=== PATIENT | female | born 1970 | race Caucasian/White ===

== ENCOUNTER 2019-04-06 11:05 | Emergency (ER) | payer OTHER ==
--- OUTSIDE RECORDS SUMMARY | 2019-04-06 11:19 | XMS REPORT | Continuity of Care Document ---
:1970 External Reference #:[id number] Author Name ASHLEY Jeter Address [address] [place] [address] Care Team Providers Name Role Phone Dimitris No M.D. - Family Care Team Information [place] Program Coordinator Medicine Problems Active Problems Provider Date Uncomplicated moderate persistent asthma Alissa Ferrari M.D. Onset: 2016 Uncomplicated moderate persistent asthma Alissa Ferrari M.D. Onset: 2015 Allergic rhinitis due to animals Alissa Ferrari M.D. Onset: 08/19/2015 Allergic rhinitis Alissa Ferrari M.D. Onset: 08/19/2015 Allergic rhinitis due to pollen Alissa Ferrari M.D. Onset: 08/19/2015 Social History Type Date Description Comments Sex Unknown Tobacco Use Start: Unknown End: Quit Unknown ETOH Use Occasionally consumes alcohol Recreational Drug Use Denies Drug Use Tobacco Use Start: Unknown End: Patient is a former quit 1998,previous Unknown smoker 1/2 ppd Allergies, Adverse Reactions, Alerts Active Allergies Reaction Severity Comments Date Sulfa Anaphylaxis 08/19/2015 Amoxicillin Contact dermatitis 08/19/2015 Erythromycin Contact dermatitis 08/19/2015 Penicillin Contact dermatitis 08/19/2015 Keflex Contact dermatitis 08/19/2015 Medications Active Medications SIG Qnty Indications Ordering Date Provider Symbicort Inhale Two Puffs 10.2units Alma 06/20/2018 160-4.5mcg/Act By Mouth Every UlichBARBARAP-C Aerosol Morning And Inhale Two Puffs By Mouth Every Evening Ventolin HFA 2 puffs every 8gm Alissa Ferrari, 09/28/2016 108(90Base) 4-6 hours as M.D. mcg/Act Aerosol needed for cough/wheeze or troubble breathing Qnasl [place] One [place] 8.7units Alissa Ferrari, 08/19/2015 80mcg/Act Aerosol In Each Nostril M.D. Up To Twice A Day as Needed Estradiol 1 tab daily. Unknown 1mg Tablets Proair HFA 2 puffs every 4 8.500gm Anuj Chao, 108(90Base) hours as needed M.D. mcg/Act Aerosol for cough, wheezing or chest tightness Zyrtec Allergy 1 every day Unknown 10mg Tablets Opurity Vitamins once daily Unknown Chewtabs Fluorometholone Instill 1 Drop Unknown 0.1% In Both Eyes Suspension Three Times A Day For 1 Week Then Twice Daily For 1 Week Medications Administered in Office Medication SIG Qnty Indications Ordering Provider Date Celbarbara/ASHLEY Paniagua 09/18/2017 [id number] 1 cc Injection Chris/Tonyisone Alissa Ferrari M.D. 08/19/2015 [id number] 1 cc Injection Immunizations CPT Code Status Date Vaccine Lot # [id number] Given Unknown Pneumococcal Vaccine 28955 Given Unknown Influenza Vaccine 14073 Given Unknown Influenza Vaccine 14755 Given Unknown Influenza Vaccine Vital Signs Date Vital Result Comment 03/29/2019 3:04pm Height 69.5 inches 5'9.50" Weight 191.00 lb Weight 86.638 kg Respiratory Rate 16 /min Heart Rate 73 /min O2 % BldC Oximetry 98 % BP Systolic 126 mmHg BP Diastolic 81 mmHg Asthma Control Test 24 Fractional Exhaled Nitric Oxide 19 BMI (Body Mass Index) 27.8 kg/m2 09/27/2018 10:00am Height 69.5 inches 5'9.50" Weight 181.00 lb Weight 82.102 kg Respiratory Rate 21 /min Heart Rate 76 /min O2 % BldC Oximetry 99 % BP Systolic 124 mmHg BP Diastolic 83 mmHg Asthma Control Test 21 BMI (Body Mass Index) 26.3 kg/m2 Results Description No Information Available Procedures Date Code Description Status 09/27/2018 41083 Pre PFT Completed Medical Devices Description No Information Available Encounters Type Date Location Provider Dx Diagnosis Office Visit 09/27/2018 [place] Alma Blum J45.40 Moderate persistent 10:00a [employer] RELATIONS SPECIALIST-C asthma, uncomplicated J30.2 Other seasonal allergic rhinitis J30.81 Allergic rhinitis due to animal (cat) (dog) hair and dander J30.1 Allergic rhinitis due to pollen Assessments Date Code Description Provider 03/29/2019 J45.40 Moderate persistent asthma, uncomplicated Alma Viktoria , [facility] RELATIONS SPECIALIST-C 03/29/2019 J30.2 Other seasonal allergic rhinitis AlmaBARBARA QuinonezP-C 03/29/2019 J30.81 Allergic rhinitis due to animal (cat) (dog) Alma Blum, [employer] RELATIONS SPECIALIST-C hair and dander 03/29/2019 J30.1 Allergic rhinitis due to pollen Alma Blum, MEDIA RELATIONS SPECIALIST-C 09/27/2018 J45.40 Moderate persistent asthma, uncomplicated Alissa Ferrari M.D. 09/27/2018 J45.40 Moderate persistent asthma, uncomplicated Alissa Ferrari M.D. 09/27/2018 J45.40 Moderate persistent asthma, uncomplicated Alma Blum , [employer]IA RELATIONS SPECIALIST-C 09/27/2018 J30.2 Other seasonal allergic rhinitis Alissa Ferrari M.D. 09/27/2018 J30.2 Other seasonal allergic rhinitis BARBARA JeterP-C 09/27/2018 J30.81 Allergic rhinitis due to animal (cat) (dog) Alissa Ferrari M.D. hair and dander 09/27/2018 J30.81 Allergic rhinitis due to animal (cat) (dog) BARBARA JeterP-C hair and dander 09/27/2018 J30.1 Allergic rhinitis due to pollen Alissa Ferrari M.D. 09/27/2018 J30.1 Allergic rhinitis due to pollen CATHLEEN Jeter-C Plan of Treatment Future Appointment(s):09/27/2019 3:00 pm - BARBARA JeterP-C at [id number] - CATHLEEN Jeter-CJ45.40 Moderate persistent asthma, ushvmzrjthyfqD66.2 Other seasonal allergic iuhsanwsO45.81 Allergic rhinitis due to animal (cat) (dog) hair and tykbxqK83.1 Allergic rhinitis due to pollenRecommendations:Continue all medications as prescribed.Refrain from wearing perfumes/scented colognes while visitingour office. Try the Flonase sensimist 2 sprays daily Continue the Symbicort 2 puffs twice a day Continue the Qnasl 2 puffs daily Continue the Zyrtec 1-2 daily Continue the Proair 2 puffs every 4 hours as needed for cough, shortness of breath, wheezing or shortness of breath. Monitor Albuterol use. If using more than 2x/week, please call the office as your asthma medications may need to be adjusted. Functional Status Description No Information Available Mental Status Description No Information Available Referrals Description No Information Available
--- OUTSIDE RECORDS SUMMARY | 2019-04-06 11:19 | XMS REPORT | Continuity of Care Document ---
:1970 External Reference #:[id number] Author Name Dinh Rene, OD Address [address] [place] [address] Care Team Providers Name Role Phone Debra Agustin FNP-C Care Team Information Quality Liaison [phone] Problems Description No Information Available Social History Type Date Description Comments Sex Unknown ETOH Use Drinks 6 Alcoholic Beverages Per Week Tobacco Use Start: Unknown End: Unknown Patient is a former smoker Smoking Status Reviewed: 03/20/19 Patient is a former smoker Allergies, Adverse Reactions, Alerts Active Allergies Reaction Severity Comments Date Sulfa Antibiotics 03/20/2019 Keflex 03/20/2019 Erythromycin 03/20/2019 Amoxicillin 03/20/2019 Flagyl 03/20/2019 Seasonal 03/20/2019 Medications Active Medications SIG Qnty Indications Ordering Provider Date Fluorometholone 1gtt three times 10ml Dinh Rene, OD 03/20/2019 0.1% a day both eyes Suspension x 1 week, then twice per day x 1 week Zyrtec Allergy take one tablet Unknown 10mg Capsules by mouth in the evening Estradiol Take One Tablet Unknown 1mg Tablets By Mouth Every Day Symbicort Inhale Two Puffs Unknown 160-4.5mcg/Act By Mouth Every Aerosol Morning And Inhale Two Puffs By Mouth Every Evening Proair HFA Unknown 108(90Base) mcg/Act Aerosol Opurity Bypass Optimized Unknown Chewtabs Calcium Citrate Chewy Unknown Bite [id number] Chewtabs Immunizations Description No Information Available Vital Signs Date Vital Result Comment 03/20/2019 3:48pm Intraocular Pressure Right Eye 15 mmHg Intraocular Pressure Left Eye 15 mmHg Results Description No Information Available Procedures Date Code Description Status 03/20/2019 64682 Eye Exam New Comprehensive Completed Medical Devices Description No Information Available Encounters Description No Information Available Assessments Date Code Description Provider 03/20/2019 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
--- OUTSIDE RECORDS SUMMARY | 2019-04-06 11:19 | XMS REPORT | Continuity of Care Document ---
:1970 External Reference #:[id number] Author Name Dinh Iveyon, OD Address [address] [place] [address] Care Team Providers Name Role Phone Debra Agustin FNP-C Care Team Information Monitor Worker [phone] Problems Description No Information Available Social History Type Date Description Comments Sex Unknown ETOH Use Drinks 6 Alcoholic Beverages Per Week Tobacco Use Start: Unknown End: Unknown Patient is a former smoker Smoking Status Reviewed: 04/03/19 Patient is a former smoker Allergies, Adverse Reactions, Alerts Active Allergies Reaction Severity Comments Date Sulfa Antibiotics 03/20/2019 Keflex 03/20/2019 Erythromycin 03/20/2019 Amoxicillin 03/20/2019 Flagyl 03/20/2019 Seasonal 03/20/2019 Medications Active Medications SIG Qnty Indications Ordering Date Provider Restasis one drop twice 60units Dinh Rene, 04/03/2019 0.05% Emulsion per day both OD eyes Fluorometholone 1gtt three 10ml Dinh Rene, 03/20/2019 0.1% times a day OD Suspension both eyes x 1 week, then twice per day x 1 week Zyrtec Allergy take one tablet Unknown 10mg by mouth in the Capsules evening Estradiol Take One Tablet Unknown 1mg Tablets By Mouth Every Day Symbicort Inhale Two Unknown 160-4.5mcg/Act Puffs By Mouth Aerosol Every Morning And Inhale Two Puffs By Mouth Every Evening Proair HFA Unknown 108(90Base) mcg/Act Aerosol Opurity Bypass Unknown Optimized Chewtabs Calcium Citrate Chewy Unknown Bite [id number] Chewtabs Immunizations Description No Information Available Vital Signs Date Vital Result Comment 04/03/2019 4:00pm Intraocular Pressure Right Eye 14 mmHg Intraocular Pressure Left Eye 14 mmHg 03/20/2019 3:48pm Intraocular Pressure Right Eye 15 mmHg Intraocular Pressure Left Eye 15 mmHg Results Description No Information Available Procedures Date Code Description Status 03/20/2019 03355 Eye Exam New Intermediate Completed Medical Devices Description No Information Available Encounters Type Date Location Provider Dx Diagnosis Office Visit 04/03/2019 Main Office Dinh Rene, OD H16.223 Keratoconjunct sicca, 3:15p not specified as Sjogren's, bilateral H52.13 Myopia, bilateral Assessments Date Code Description Provider 04/03/2019 H16.223 Keratoconjunctivitis sicca, not specified as Dinh Rene, OD Sjogren's, bilateral 04/03/2019 H52.13 Myopia, bilateral Dinh Rene, OD 03/20/2019 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
[2019-04-06 11:35] VITALS: BP 134/78
--- NOTE | 2019-04-06 11:50 | UC ---
Shoulder Pain HPI - HPI Summary HPI Summary: 48 yo female presents with RIGHT shoulder pain. She tells me that for the last 6 + months she has had right shoulder pain that has been worsening with time and activities. She denies specific injury, but her ROM is decreasing and her pain is increasing. No radiation of pain. No numbness or tingling. Has been taking ibuprofen with little relief - History of Current Complaint Chief Complaint: UCUpperExtremity Stated Complaint: RIGHT SHOULDER INJURY Time Seen by Provider: 04/06/19 11:49 Hx Obtained From: Patient Hx Last Menstrual Period: hysterectomy Onset/Duration: Gradual Onset Severity Initially: Mild Severity Currently: Moderate Pain Intensity: 5 Pain Scale Used: 0-10 Numeric - Allergies/Home Medications Allergies/Adverse Reactions: Allergies Allergy/AdvReac Type Severity Reaction Status Date / Time erythromycin base Allergy Rash Verified 04/06/19 11:36 metronidazole [From Flagyl] Allergy Rash Verified 04/06/19 11:36 Penicillins Allergy Rash Verified 04/06/19 11:36 Sulfa (Sulfonamide Allergy Anaphylatic Verified 04/06/19 11:36 Antibiotics) Shock Home Medications: Home Medications Beclomethasone Dipropionate [Qnasl] 1 inh INH DAILY 04/06/19 [History Confirmed 04/06/19] Budesonide/Formote 160/4.5(NF) [Symbicort 160/4.5 (NF)] 2 puff INH DAILY [History Confirmed 04/06/19] Calcium Carbonate/Vitamin D3 [Caltrate 600 + D Soft Chew Tab] 1 tab PO DAILY [History Confirmed 04/06/19] Opurity Multivitamin 1 tab PO DAILY 04/06/19 [History Confirmed 04/06/19] PMH/Surg Hx/FS Hx/Imm Hx Respiratory History: Asthma - Surgical History Surgical History: Yes Surgery Procedure, Year, and Place: hysterectomy, tmj, amadou, tubal ligation, csection, d&c, sinus rhinoplasty, thyroid,bony y. gastric bypass. lasix - Family History Known Family History: Positive: Other - scleraderma in mother - Social History Occupation: Employed Full-time Lives: With Family Alcohol Use: Daily Substance Use Type: None Smoking Status (MU): Former Smoker Type: Cigarettes Amount Used/How Often: 1/2 ppd for 15 yrs When Did the Patient Quit Smoking/Using Tobacco: 1998 - Immunization History Most Recent Influenza Vaccination: 2017 Most Recent Pneumonia Vaccination: never Hx Tetanus, Diphtheria Vaccination: Yes - no flu this year Review of Systems All Other Systems Reviewed And Are Negative: No Constitutional: Positive: Negative Skin: Positive: Negative Respiratory: Positive: Negative Cardiovascular: Positive: Negative Neurovascular: Positive: Negative Musculoskeletal: Positive: Other: - Right shoulder pain Neurological: Positive: Negative Psychological: Positive: Negative Physical Exam - Summary Physical Exam Summary: GENERAL: NAD. WDWN. No pain distress. SKIN: No rashes, sores, lesions, or open wounds. CHEST: No accessory muscle use. Breathing comfortably and in no distress. CV: Pulses intact radial and ulnar. Cap refill <2seconds MSK: RIGHT SHOULDER: Muscle spasm posterior shoulder. Flexion to 90deg before pain stops her. Positive empty can. Positive apprehension. Positive neer. TTP about posterior shoulder. FROM right elbow NEURO: Alert. Sensations intact c4-t1 b/l PSYCH: Age appropriate behavior. Triage Information Reviewed: Yes Vital Signs: Initial Vital Signs Temp 97.1 F 04/06/19 11:30 Pulse 78 04/06/19 11:30 Resp 18 04/06/19 11:30 BP 134/78 04/06/19 11:30 Pulse Ox 100 04/06/19 11:30 Vital Signs Reviewed: Yes Diagnostics - Radiology shoulder xr Radiology Interpretation Completed By: Radiologist Summary of Radiographic Findings: Indication: Right shoulder pain. 4 views of the right shoulder demonstrates AC joint arthritis. No fracture is identified. No other bone or joint abnormality is noted. IMPRESSION: No fracture of the right shoulder is noted. Shoulder Course/Dx - Course Course Of Treatment: XR as above. She has taken skelaxin in the past with good relief, thus will rx for this today. Will refer her to physical therapy and have her f/u with Orthopedics for further evaluation. - Differential Dx/Diagnosis Provider Diagnosis: Right shoulder pain Discharge ED - Sign-Out/Discharge Documenting (check all that apply): Patient Departure All imaging exams completed and their final reports reviewed: Yes - Discharge Plan Condition: Stable Disposition: HOME Prescriptions: Metaxalone TAB* [Skelaxin TAB*] 800 mg PO TID PRN #21 tab PRN Reason: Pain - Mild Patient Education Materials: Shoulder Pain (ED) Referrals: Debra Agustin NP [Primary Care Provider] - Don Burnham MD [Medical Doctor] - As Soon As Possible Additional Instructions: If you develop a fever, shortness of breath, chest pain, new or worsening symptoms - please call your PCP or go to the ED immediately. The X-Ray of your shoulder showed some arthritis. I recommend that you start physical therapy and call Orthopedics at the number below to schedule an appointment for further evaluation - Billing Disposition and Condition Condition: STABLE Disposition: Home - Attestation Statements Provider Attestation: I was available for consult. This patient was seen by the AMADEO. The patient was not presented to , seen by or examined by pr -Gil Vasquez MD
== END 2019-04-06 13:00 | disposition home or self-care (01) ==
LOC: UCEAST 11:05
DX: M25.511 Pain in right shoulder (principal); J45.909 Unspecified asthma, uncomplicated; Z88.1 Allergy status to other antibiotic agents; Z88.0 Allergy status to penicillin; Z88.2 Allergy status to sulfonamides; Z87.891 Personal history of nicotine dependence; Z79.51 Long term (current) use of inhaled steroids
CPT/HCPCS: 99212; G0463

== ENCOUNTER 2019-08-14 06:19 | Emergency (ER) | payer OTHER ==
--- NOTE | 2019-08-14 06:52 | ED ---
Lower Extremity - HPI Summary HPI Summary: Pt. is a 48 y.o female who presents to the ER for left ankle injury that occurred this morning after a mechanical fall. Pt. states she woke up early this morning and was too warm so she got up to remove her pants and tripped over pants and fell. She denies striking her head or LOC. Pt. c/o mostly left ankle pain and pain to right second toe. Sxs are mild in severity. Walking makes sxs worse. Rest improves sxs. - History of Current Complaint Chief Complaint: EDExtremityLower Stated Complaint: LEFT ANKLE INJURED PER PT Time Seen by Provider: 08/14/19 06:47 Hx Obtained From: Patient Hx Last Menstrual Period: hysterectomy Pain Intensity: 10 - Allergies/Home Medications Allergies/Adverse Reactions: Allergies Allergy/AdvReac Type Severity Reaction Status Date / Time erythromycin base Allergy Rash Verified 05/22/19 15:54 metronidazole [From Flagyl] Allergy Rash Verified 05/22/19 15:54 Penicillins Allergy Rash Verified 05/22/19 15:54 Sulfa (Sulfonamide Allergy Anaphylatic Verified 05/22/19 15:54 Antibiotics) Shock Tree Nuts Allergy Anaphylatic Verified 08/14/19 06:46 Shock Home Medications: Home Medications Estradiol 0.5 mg PO EVERY OTHER DAY 07/24/15 [History Confirmed 04/06/19] Albuterol inh POWDER (NF) [Proair Respiclick] 108 mcg INH QID PRN 08/15/16 [ History Confirmed 04/06/19] Beclomethasone Dipropionate [Qnasl] 1 inh INH DAILY 04/06/19 [History Confirmed 04/06/19] Budesonide/Formote 160/4.5(NF) [Symbicort 160/4.5 (NF)] 2 puff INH DAILY [History Confirmed 04/06/19] Calcium Carbonate/Vitamin D3 [Caltrate 600 + D Soft Chew Tab] 1 tab PO DAILY [History Confirmed 04/06/19] Metaxalone TAB* [Skelaxin TAB*] 800 mg PO TID PRN #21 tab 04/06/19 [Rx] Opurity Multivitamin 1 tab PO DAILY 04/06/19 [History Confirmed 04/06/19] PMH/Surg Hx/FS Hx/Imm Hx Previously Healthy: Yes Endocrine/Hematology History: Reports: 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, Hx Anemia - before hyster Denies: Hx Diabetes Cardiovascular History: Reports: Hx Hypertension - better Denies: Hx Pacemaker/ICD Respiratory History: Reports: Hx Asthma - well controlled, Hx Sleep Apnea - CPAP GI History: Reports: Hx Gastroesophageal Reflux Disease, Hx Hiatal Hernia, Hx Ulcer - gerd History: Denies: Hx Renal Disease Musculoskeletal History: Reports: Hx Tendonitis - left elbow Sensory History: Denies: Hx Hearing Aid Neurological History: Reports: Hx Migraine - no longer on med Psychiatric History: Reports: Hx Anxiety, Hx Depression Denies: Hx Panic Disorder - Cancer History Hx Chemotherapy: No Hx Radiation Therapy: No - Surgical History Surgery Procedure, Year, and Place: hysterectomy, tmj, amadou, tubal ligation, csection, d&c, sinus rhinoplasty, thyroid,bony y. gastric bypass. lasix Hx Anesthesia Reactions: Yes - reports PONV Infectious Disease History: No Infectious Disease History: Denies: History Other Infectious Disease, Traveled Outside the [place] in Last 30 Days - Family History Known Family History: Positive: Other - scleraderma in mother, Non-Contributory - Social History Occupation: Employed Full-time Lives: With Family Alcohol Use: Daily Substance Use Type: Reports: None Smoking Status (MU): Former Smoker Type: Cigarettes Amount Used/How Often: 1/2 ppd for 15 yrs Review of Systems Positive: Other - left ankle and right 2nd toe pain. Positive: Bruising Neurological/Mental Status: Negative Negative: Headache, Weakness, Paresthesia, Numbness, Syncope All Other Systems Reviewed And Are Negative: Yes Physical Exam Triage Information Reviewed: Yes Vital Signs On Initial Exam: Initial Vitals Temp Pulse Resp BP Pulse Ox 98.0 F 104 16 160/103 97 08/14/19 06:35 08/14/19 06:35 08/14/19 06:35 08/14/19 06:35 08/14/19 06:35 Vital Signs Reviewed: Yes Appearance: Positive: Well-Appearing - Pt. lying on bed in NAD. Skin: Positive: Warm, Dry Head/Face: Positive: Normal Head/Face Inspection Eyes: Positive: Normal, EOMI Neck: Positive: Supple Musculoskeletal: Positive: Other - Ecchymosis over right proximal humerous without pain. Pain over left lateral malleolus and mildly through foot. Achilles tendon intact. Good PD pulse. No proximal tib/fib pain. Ecchymosis and pain to right second digit of foot. No breaks in skin. Neurological: Positive: Normal, CN Intact II-III Psychiatric: Positive: Affect/Mood Appropriate Procedures - Sedation Patient Received Moderate/Deep Sedation with Procedure: No Diagnostics - Vital Signs Vital Signs Temp Pulse Resp BP Pulse Ox 08/14/19 06:35 98.0 F 104 16 160/103 97 - Laboratory Lab Statement: Any lab studies that have been ordered have been reviewed, and results considered in the medical decision making process. Lower Extremity Course/Dx - Course Course Of Treatment: Pt. with LE injuries after a mechanical fall. Denies pain medication. XR per radiology: IMPRESSION: BONE FRAGMENT ALONG THE DORSAL ASPECT OF THE TALUS SUGGESTIVE OF AVULSION FRACTURE. RECOMMEND CORRELATION WITH SITE OF PAIN. Questionable old injury. Given pt. cannot bear weight will splint and crutch and have her f.u with ortho. To ice and elevate. Tylenol for pain as directed. Will return to er if sxs change or worsen. Pt. understands and agrees with plans. - Diagnoses Differential Diagnosis/HQI/PQRI: Positive: Contusion, Fracture (Closed), Sprain , Strain Provider Diagnoses: Talus fracture, Toe contusion Discharge ED - Sign-Out/Discharge Documenting (check all that apply): Patient Departure - Discharge Plan Condition: Good Disposition: HOME Patient Education Materials: Talar Fracture in Adults (ED) Forms: *Work Release Referrals: Debra Agustin NP [Nurse Practitioner] - Genesis Zamudio MD [Medical Doctor] - Additional Instructions: Call the orthopedic clinic today to schedule an appointment Keep splint in place Use crutches Ice and elevate Tylenol or Motrin for pain as directed Return to ER if symptoms change or worsen - Billing Disposition and Condition Condition: GOOD Disposition: Home
--- OUTSIDE RECORDS SUMMARY | 2019-08-14 07:12 | XMS REPORT | Continuity of Care Document ---
:1970 External Reference #:[id number] Author Name Rian Molina MD (transmitted by agent of provider Marlene Casey) Address [address] [place] [id number] Care Team Providers Name Role Phone Artem No MD - Internal Care Team Information Air Intelligence Officer Medicine William Waldrop MD - Endocrinology, Care Team Information Air Intelligence Officer Diabetes & Metabolism [facility] - Family Care Team Information Air Intelligence Officer Medicine Problems Active Problems Provider Date Gastroesophageal reflux disease Tanya Osorio NP Onset: 02/13/2017 History of bariatric surgical Artem No M.D.,FACP Onset: 03/09/2018 procedure Note: 03/31 Allergic asthma Artem No M.D.,FACP Onset: 03/09/2018 Seasonal allergic rhinitis Artem No M.D.,FACP Onset: 03/09/2018 Menopausal symptom Artem No M.D.,FACP Onset: 03/09/2018 H/O: hysterectomy Artem oN M.D.,FACP Onset: 03/09/2018 Subtotal thyroidectomy Artem No M.D.,FACP Onset: 03/09/2018 Note: Hurthle Cell Injury of tendon of the rotator cuff of shoulder Rian Molina MD Onset: Social History Type Date Description Comments Sex Unknown Tobacco Use Start: Unknown End: Former Cigarette Smoker Unknown Smoking Status Reviewed: 07/16/19 Former Cigarette Smoker ETOH Use 03/09/2018 Occasionally consumes alcohol Tobacco Use Start: Unknown End: Patient is a former quit 1998, smoked Unknown smoker for 15yrs 1PPD Recreational Drug Use Denies Drug Use Exercise Type/Frequency Exercises regularly Allergies, Adverse Reactions, Alerts Active Allergies Reaction Severity Comments Date Sulfa anaphylaxis/rash 10/31/2016 Erythromycin rash - can take Zithromax 10/31/2016 Keflex rash 10/31/2016 Amoxicillin rash 10/31/2016 Flagyl 10/31/2016 Tree Nuts 05/31/2019 Medications Active Medications SIG Qnty Indications Ordering Date Provider Estradiol 1 by mouth every 90tabs Artem Lemos 1mg Tablets day Vane No,FACAnuel Qnasl 2 inhalations in J01.90 Unknown 80mcg/Act each nostril once Aerosol daily prn Proair HFA 2 puffs by mouth Unknown every 4 hours as 108(90Base) mcg/Act needed Aerosol Opurity multi-vitamin, 1 J30.9 Unknown Tablets daily Richi Allergy 1 by mouth every Unknown 180mg day prn Tablets Zyrtec Allergy 1 by mouth every Unknown day alternating with claritin and richi depending on type of year Claritin 1 by mouth every Unknown 10mg day alternating Capsules with zyrtec and richi depending on time of year Symbicort 1 puff twice a day Unknown 160-4.5mcg/Act Aerosol Medications Administered in Office Medication SIG Qnty Indications Ordering Provider Date Celestone 3 mg and 3mg Rian Molina MD 07/16/2019 Injection Celestone 3 mg and 3mg Rian Molina MD 04/09/2019 Injection Immunizations CPT Code Status Date Vaccine Reaction Lot # [id number] Given 03/09/2018 Pneumonia Vaccine [id number] Given 03/09/2018 Influenza Virus Vaccine, [id number] Quadrivalent, Split, Preservative Free 46990 Given 02/13/2017 Influenza Virus Vaccine, no immediate reaction, [id number] Quadrivalent, Split, pt tolerated well Preservative Free 87472 Given 02/01/2016 Influenza Virus 3Yrs & Over Vital Signs Date Vital Result Comment 07/16/2019 8:34am Height 69.5 inches 5'9.50" Heart Rate 94 /min BP Systolic 120 mmHg BP Diastolic 82 mmHg Respiratory Rate 16 /min Body Temperature 98.1 F Pain Level 8 05/31/2019 8:23am Height 69.5 inches 5'9.50" Weight 189.00 lb Heart Rate 92 /min BP Systolic Sitting 118 mmHg BP Diastolic Sitting 68 mmHg Respiratory Rate 14 /min Pain Level 0 O2 % BldC Oximetry 99 % BMI (Body Mass Index) 27.5 kg/m2 Results Description No Information Available Procedures Date Code Description Status 07/16/201931796 Inject/Drain Joint/Bursa Major W/O US Completed 04/09/201917700 Inject/Drain Joint/Bursa Major W/O US Completed 05/04/2018 [id number] Mammogram Completed 08/27/2015 [id number] Mammogram Completed Medical Devices Description No Information Available Encounters Type Date Location Provider Dx Diagnosis Office Visit 07/16/2019 Gregoria Molina S43.491D Other sprain of 8:15a at [facility] right shoulder joint, subsequent encounter Office Visit 05/31/2019 Gregoria Molina S43.491D Other sprain of 8:00a at [facility] right shoulder joint, subsequent encounter M75.41 Impingement syndrome of right shoulder Office Visit 05/21/2019 3:15p Gregoria Modi S46.001D Unsp inj at [facility] MD musc/tend the rotator cuff of r shoulder, subs M25.511 Pain in right shoulder Office Visit 04/09/2019 2:45p Gregoria Modi S46.001A Unsp inj at [facility] yulia Patel/tend the rotator cuff of r shoulder, init M25.511 Pain in right shoulder Assessments Date Code Description Provider 07/16/2019 S43.491D Other sprain of right shoulder joint, Rian Molina MD subsequent encounter 05/31/2019 S43.491D Other sprain of right shoulder joint, Rian Molina MD subsequent encounter 05/31/2019 M75.41 Impingement syndrome of right shoulder Rian Molina MD 05/21/2019 S46.001D Unspecified injury of muscle(s) and tendon(s) Rian Molina MD of the rotator cuff of right shoulder, subsequent encounter 05/21/2019 M25.511 Pain in right shoulder Rian Molina MD 04/09/2019 S46.001A Unspecified injury of muscle(s) and tendon(s) Rian Molina MD of the rotator cuff of right shoulder, initial encounter 04/09/2019 M25.511 Pain in right shoulder Rian Molina MD Plan of Treatment 07/16/2019 - Rian Molina, MDS43.491D Other sprain of right shoulder joint, subsequent encounterFollow up:Follow up: As needed Functional Status Description No Information Available Mental Status Description No Information Available Referrals Description No Information Available
--- OUTSIDE RECORDS SUMMARY | 2019-08-14 07:12 | XMS REPORT | Continuity of Care Document ---
:1970 External Reference #:[id number] Author Name Rian Molina MD (transmitted by agent of provider Miguelina Mitchell) Address [address] [place] [phone] Care Team Providers Name Role Phone Artem No MD - Internal Care Team Information Canine Service Teacher [phone] Medicine William Waldrop MD - Endocrinology, Care Team Information Canine Service Teacher Diabetes & Metabolism [facility] - Family Care Team Information Canine Service Teacher Medicine Problems Active Problems Provider Date Gastroesophageal reflux disease Tanya Osorio NP Onset: 02/13/2017 History of bariatric surgical Artem No M.D.,FACP Onset: 03/09/2018 procedure Note: 03/31 Allergic asthma Artem No M.D.,FACP Onset: 03/09/2018 Seasonal allergic rhinitis Artem No M.D.,FACP Onset: 03/09/2018 Menopausal symptom Artem No M.D.,FACP Onset: 03/09/2018 H/O: hysterectomy Artem No M.D.,FACP Onset: 03/09/2018 Subtotal thyroidectomy Artem No [...] 90tabs Artem Lemos 1mg Tablets day Vane No,FACP Qnasl 2 inhalations in J01.90 Unknown 80mcg/Act [...] Code Status Date Vaccine Reaction Lot # [id number] Given 03/09/2018 Pneumonia Vaccine [id number] Given 03/09/2018 Influenza Virus Vaccine, [id number] Quadrivalent, Split, Preservative Free 49732 Given 02/13/2017 Influenza Virus Vaccine, no immediate reaction, [id number] Quadrivalent, Split, pt tolerated well Preservative Free 26249 Given 02/01/2016 Influenza Virus 3Yrs & Over [...] Information Available Procedures Date Code Description Status 04/09/2019 66905 Inject/Drain Joint/Bursa Major W/O US Completed 05/04/2018 [id number] Mammogram Completed 08/27/2015 [id number] Mammogram Completed Medical Devices Description No Information Available Encounters Type Date Location Provider Dx Diagnosis Office Visit 05/31/2019 [facility] Rian Molina, S43.491D Other sprain of 8:00a at [facility] right shoulder joint, subsequent encounter M75.41 Impingement syndrome of right shoulder Office Visit 05/21/2019 3:15p Gregoria Modi S46.001D Unsp inj at [facility] Mol[facility] MD musc/tend the rotator cuff of r shoulder, subs M25.511 Pain in right shoulder Office Visit 04/09/2019 2:45p Gregoria Modi S46.001A Unsp inj at [facility] Molina MD musc/tend the rotator cuff of r shoulder, init M25.511 Pain in right shoulder Assessments Date Code Description Provider 05/31/2019 S43.491D Other sprain of right shoulder [...] shoulder Rian Molina MD Plan of Treatment No Information Available Functional Status Description No Information Available Mental Status Description No Information Available Referrals Description No Information Available
[2019-08-14 08:24] VITALS: BP 165/104
== END 2019-08-14 08:23 | disposition home or self-care (01) ==
LOC: ED 06:19
DX: S90.122A Contusion of left lesser toe(s) without damage to nail, initial encounter (principal); S92.102A Unspecified fracture of left talus, initial encounter for closed fracture; W19.XXXA Unspecified fall, initial encounter; Y92.9 Unspecified place or not applicable; I10 Essential (primary) hypertension; K21.9 Gastro-esophageal reflux disease without esophagitis; F41.9 Anxiety disorder, unspecified; F32.9 Major depressive disorder, single episode, unspecified; Z88.2 Allergy status to sulfonamides; Z88.0 Allergy status to penicillin; Z87.891 Personal history of nicotine dependence
CPT/HCPCS: 99282